=== PATIENT | female | born 1945 | race Caucasian/White ===

== ENCOUNTER → 2020-04-05 | Outpatient (CLI) | payer MEDICARE ==
--- NOTE | 2020-04-07 01:05 | MR ---
Result: History: Left foot mass. Comparison: None available. Technique: Multiplanar, multisequence MR imaging of the left foot was performed without contrast. Findings: There is a skin marker at the dorsal and medial aspect of the midfoot. There is a prominent dorsal osteophyte with skin thickening at the area of clinical concern. There ar e scattered mild to moderate degenerative changes most notable at the mid foot. Otherwise no significant bone marrow abnormality, acute fracture or dislocation. No significant joint effusion. There is mild to moderate soft tissue edema predominantly subcutaneous and superficial fascia of the forefoot. No significant fluid collection or abnormal mass. There is no significant abnormality of the visualized tendons. The plantar fascia is grossly intact. No significant muscle atrophy. Impression: Area of clinical concern corresponding to prominent dorsal osteophyte with skin thickening. No signif icant fluid collection or mass seen. Recommend clinical follow-up to resolution or stability. Mild to moderate soft tissue edema most notable at the forefoot. Correlate for bland edema versus aron lulitis. No acute osseous abnormality or osteomyelitis.
== END | disposition home or self-care (01) ==
LOC: RADMRIMAIN 16:29
PROVIDERS: ATTEND Podiatrist Foot & Ankle Surgery
DX: M79.89 Other specified soft tissue disorders (principal)

== ENCOUNTER 2021-03-27 05:06 | Inpatient (IN) | payer MEDICARE ==
[2021-03-27] MEDS ORDERED: DEXAMETHASONE SOD PHOSPHATE 10 MG/ML 1 ML VIAL IVP STA (05:12)
[2021-03-27] MEDS ORDERED: SODIUM CHLORIDE 0.9% 1,000 ML IV STA (05:12)
[2021-03-27] MEDS ORDERED: ALBUTEROL HFA INHALER INHALATION STA (05:12)
[2021-03-27] MEDS ORDERED: KETOROLAC 15 MG/ML 1 ML VIAL IVP STA (05:12)
[2021-03-27] MEDS ORDERED: ACETAMINOPHEN TAB 500 MG TAB PO STA (05:12)
--- NOTE | 2021-03-27 05:13 | ED ---
Recheck HPI - General Stated Complaint: SUSAN, covid+ Time Seen by Provider: 03/27/21 05:12 - Related Data Home Medications Medication Instructions Recorded Confirmed Ergocalciferol [Vitamin D2 50,000 unit PO Q7D 01/07/14 12/01/15 (DRISDOL)] Metoprolol Tartrate [Lopressor] 100 mg PO BID 01/07/14 12/01/15 Simvastatin [Zocor] 20 mg PO HS 01/07/14 12/01/15 Meclizine [Antivert] 12.5 mg PO DAILY 12/01/15 12/01/15 Omeprazole 20 mg PO DAILY 12/01/15 12/01/15 Zolpidem Tartrate [Ambien] 5 mg PO HS 12/01/15 12/01/15 amLODIPine [Norvasc] 5 mg PO DAILY 12/01/15 12/01/15 Previous Rx's Medication Instructions Recorded Acetaminophen with Codeine 1 tab PO Q4H #20 tab 12/01/15 [Tylenol w/codeine #3] Naproxen [Naprosyn] 500 mg PO Q12HR #60 tab 12/01/15 Allergies Allergy/AdvReac Type Severity Reaction Status Date / Time Iodinated Contrast Media Allergy Unknown Verified 03/27/21 05:20 [Iodinated Contrast Media - IV Dye] Review of Systems ROS Statement: Those systems with pertinent positive or pertinent negative responses have been documented in the HPI. ROS Other: All systems not noted in ROS Statement are negative. Past Medical History Past Medical History: Hyperlipidemia, Hypertension Additional Past Medical History / Comment(s): palpitations History of Any Multi-Drug Resistant Organisms: None Reported Past Surgical History: Appendectomy Additional Past Surgical History / Comment(s): throat surg Past Anesthesia/Blood Transfusion Reactions: No Reported Reaction Past Psychological History: No Psychological Hx Reported Past Alcohol Use History: None Reported Past Drug Use History: None Reported Course Vital Signs 03/27/21 05:08 Temperature 98 F Pulse Rate 95 Respiratory 18 Rate Blood Pressure 117/55 O2 Sat by Pulse 95 Oximetry Medical Decision Making - Lab Data Result diagrams: 03/27/21 05:23 03/27/21 05:23 Lab Results 03/27/21 03/27/21 Range/Units 05:23 05:23 WBC 6.7 (3.8-10.6) k/uL RBC 4.37 (3.80-5.40) m/uL Hgb 14.2 (11.4-16.0) gm/dL Hct 42.6 (34.0-46.0) % MCV 97.6 (80.0-100.0) fL MCH 32.6 (25.0-35.0) pg MCHC 33.4 (31.0-37.0) g/dL RDW 12.6 (11.5-15.5) % Plt Count 186 (150-450) k/uL MPV 7.8 Neutrophils % 71 % Lymphocytes % 22 % Monocytes % 6 % Eosinophils % 0 % Basophils % 0 % Neutrophils # 4.8 (1.3-7.7) k/uL Lymphocytes # 1.5 (1.0-4.8) k/uL Monocytes # 0.4 (0-1.0) k/uL Eosinophils # 0.0 (0-0.7) k/uL Basophils # 0.0 (0-0.2) k/uL Sodium 130 L (137-145) mmol/L Potassium 3.8 (3.5-5.1) mmol/L Chloride 101 (98-107) mmol/L Carbon Dioxide 20 L (22-30) mmol/L Anion Gap 9 mmol/L BUN 20 H (7-17) mg/dL Creatinine 0.81 (0.52-1.04) mg/dL Est GFR (CKD-EPI)AfAm 83 (>60 ml/min/1.73 sqM) Est GFR (CKD-EPI)NonAf 72 (>60 ml/min/1.73 sqM) Glucose 97 (74-99) mg/dL Calcium 8.5 (8.4-10.2) mg/dL Magnesium 1.5 L (1.6-2.3) mg/dL Total Bilirubin 0.3 (0.2-1.3) mg/dL AST 49 H (14-36) U/L ALT 30 (4-34) U/L Alkaline Phosphatase 70 (38-126) U/L Lactate Dehydrogenase 482 (313-618) U/L C-Reactive Protein 2.0 H (<1.0) mg/dL Total Protein 6.9 (6.3-8.2) g/dL Albumin 3.5 (3.5-5.0) g/dL Disposition Clinical Impression: Chest pain, Hypoxia, Coronavirus infection, COVID-19 Disposition: ADMITTED IP TO THIS HOSP Condition: Fair Is patient prescribed a controlled substance at d/c from ED?: No Referrals: Sarah Griggs MD [Primary Care Provider] - 1-2 days
[2021-03-27] MEDS ORDERED: MORPHINE SULFATE 2 MG/ML SYRINGE IVP STA (05:32)
[2021-03-27 05:44] LABS: Basophils % (A) 0 %; Eosinophils % (A) 0 %; HCT 42.6 % (34.0-46.0); HGB 14.2 gm/dL (11.4-16.0); Lymphocytes # (A) 1.5 k/uL (1.0-4.8); Lymphocytes % (A) 22 %; MCH 32.6 pg (25.0-35.0); MCHC 33.4 g/dL (31.0-37.0); MCV 97.6 fL (80.0-100.0); Mean Platelet Volume 7.8; Monocytes # (A) 0.4 k/uL (0-1.0); Monocytes % (A) 6 %; Neutrophils # (A) 4.8 k/uL (1.3-7.7); Neutrophils % (A) 71 %; Platelet Count 186 k/uL (150-450); RBC 4.37 m/uL (3.80-5.40); RDW 12.6 % (11.5-15.5); WBC 6.7 k/uL (3.8-10.6)
--- NOTE | 2021-03-27 05:54 | XR ---
EXAMINATION TYPE: XR chest 1V portable DATE OF EXAM: 03/27/2021 COMPARISON: 01/07/2014 HISTORY: Cough and congestion TECHNIQUE: Single view FINDINGS: Heart is normal. Lungs are clear of infiltrate. There is no heart failure. There are no hil ar masses. IMPRESSION: No active cardiopulmonary disease. No adverse change.
[2021-03-27 06:01] LABS: Albumin 3.5 g/dL (3.5-5.0); Calcium 8.5 mg/dL (8.4-10.2); Magnesium 1.5 mg/dL (1.6-2.3); Total Bilirubin 0.3 mg/dL (0.2-1.3); Total Protein 6.9 g/dL (6.3-8.2)
[2021-03-27 06:09] LABS: Potassium 3.8 mmol/L (3.5-5.1)
[2021-03-27] MEDS ORDERED: MORPHINE SULFATE 4 MG/ML SYRINGE IV PRN (06:28)
[2021-03-27] MEDS ORDERED: NALOXONE 0.4 MG/ML 1 ML VIAL IV PRN (06:28)
[2021-03-27] MEDS ORDERED: BAMLANIVIMAB (EUA) 700 MG, ETESEVIMAB (EUA) 1,400 MG in SODIUM CHLORIDE 0.9% 50 ML IVPB ONE (06:30)
[2021-03-27] MEDS ORDERED: SODIUM CHLORIDE 0.9% 50 ML IVPB ONE (06:30)
[2021-03-27 06:33] LABS: INR 0.9 (<1.2); Partial Thromboplastin Time 29.9 sec (22.0-30.0); Prothrombin Time 10.2 sec (9.0-12.0)
[2021-03-27] MEDS: SODIUM CHLORIDE 0.9% 1,000 ML IV SCH ×3 (07:40→20:57)
[2021-03-27] MEDS: ISOSORBIDE MONONITRATE ER 30 MG TAB.ER.24H PO SCH (08:49)
[2021-03-27] MEDS: METOPROLOL TARTRATE 50 MG TAB PO SCH ×2 (08:49→20:40)
[2021-03-27] MEDS: MULTIVITAMINS, THERA 1 EACH TAB PO SCH (08:50)
[2021-03-27] MEDS: ALBUTEROL HFA INHALER INHALATION PRN ×3 (08:52→20:53)
[2021-03-27] MEDS: cycloSPORINE 0.05% OPHTH 0.4 ML DROPERETTE BOTH EYES SCH ×2 (08:58→20:57)
--- NOTE | 2021-03-27 10:46 | P.HPIM ---
History of Present Illness H&P Date: 03/27/21 This is a 76-year-old female with past medical history noted below Presented to the emergency room with worsening weakness, shortness of breath, and cough. Patient said that her symptoms started approximately a week ago and is being getting progressively worse. She denies any fevers or chills. She went to a local urgent care yesterday and was diagnosed with COVID-19. She came in to the ER today to receive mAb that was found to be hypoxic with O2 sats of 87% on room air. She was given IV Decadron and will be placed on observation for further management. Patient informed me that she is not vaccinated. She denies any contact with known COVID patient. She otherwise denies any diarrhea, nausea, or vomiting. Review of Systems Review of system: 14 points review of systems were obtained and were negative except to what were mentioned in the HPI. Past Medical History Past Medical History: Hyperlipidemia, Hypertension Additional Past Medical History / Comment(s): palpitations History of Any Multi-Drug Resistant Organisms: None Reported Past Surgical History: Appendectomy Additional Past Surgical History / Comment(s): throat surg Past Anesthesia/Blood Transfusion Reactions: No Reported Reaction Past Psychological History: No Psychological Hx Reported Past Alcohol Use History: None Reported Past Drug Use History: None Reported Medications and Allergies Home Medications Medication Instructions Recorded Confirmed Type Metoprolol Tartrate [Lopressor] 100 mg PO BID 01/07/14 03/27/21 History amLODIPine [Norvasc] 5 mg PO DAILY 12/01/15 03/27/21 History Albuterol Inhaler [Ventolin Hfa 2 puff INHALATION RT-QID PRN 03/27/21 03/27/21 History Inhaler] Atorvastatin [Lipitor] 40 mg PO HS 03/27/21 03/27/21 History Isosorbide Mononitrate ER [Imdur] 30 mg PO DAILY 03/27/21 03/27/21 History Isosorbide Mononitrate ER [Imdur] 60 mg PO DAILY 03/27/21 03/27/21 History Multivitamins, Thera [Multivitamin 1 tab PO DAILY 03/27/21 03/27/21 History (formulary)] cycloSPORINE [Restasis] 1 drop BOTH EYES BID 03/27/21 03/27/21 History Allergies Allergy/AdvReac Type Severity Reaction Status Date / Time Iodinated Contrast Media Allergy Unknown Verified 03/27/21 07:09 [Iodinated Contrast Media - IV Dye] Physical Exam Vitals: Vital Signs Temp Pulse Resp BP Pulse Ox 03/27/21 09:00 117/54 03/27/21 08:52 96 03/27/21 08:51 90 16 117/54 94 L 03/27/21 08:24 95 03/27/21 08:23 88 L 03/27/21 07:33 98.6 F 93 16 105/58 94 L 03/27/21 05:08 98 F 95 18 117/55 95 Intake and Output 03/26/21 03/27/21 03/27/21 22:59 06:59 14:59 Other: Weight 80.739 kg General: The patient is awake and alert, in no distress Eye: there is normal conjunctiva bilaterally. Neck: The neck is supple, there is no JVD. Cardiovascular: Normal S1-S2, no S3-S4, no murmurs. Respiratory: Lungs clear to auscultation bilaterally Gastrointestinal: Abdomen is soft, nontender Musculoskeletal: There is no pedal edema. Neurological:. Speech is normal. Skin: Skin is warm and dry Results CBC & Chem 7: 03/27/21 05:23 03/27/21 05:23 Labs: Abnormal Lab Results - Last 24 Hours (Table) 03/27/21 Range/Units 05:23 Sodium 130 L (137-145) mmol/L Carbon Dioxide 20 L (22-30) mmol/L BUN 20 H (7-17) mg/dL Magnesium 1.5 L (1.6-2.3) mg/dL AST 49 H (14-36) U/L C-Reactive Protein 2.0 H (<1.0) mg/dL Assessment and Plan Assessment: 1. Acute hypoxic respiratory failure secondary to COVID-19 in non-vaccinated patient: Chest x-ray unremarkable. D-dimer normal. Continue Decadron 6 mg daily. Vitamin C, vitamin D, and zinc supplements. Pulmonary consulted for further evaluation. 2. Hypomagnesemia, replaced, repeat lab work in the morning 3. Hyponatremia, we will continue gentle IV fluid hydration with normal saline 4. Essential hypertension, blood pressure borderline low. Hold home dose of amlodipine and continue other medications 5. DVT prophylaxis with subcu Lovenox 6. CODE STATUS, patient is full code. Discussed with her today
[2021-03-27] MEDS: ZINC SULFATE 220 MG CAP PO SCH (11:38)
[2021-03-27] MEDS: ENOXAPARIN 40 MG/0.4 ML SYRINGE SQ SCH (11:39)
[2021-03-27] MEDS: ASCORBIC ACID 500 MG TAB PO SCH (11:39)
[2021-03-27] MEDS: CHOLECALCIFEROL 25 MCG (1000 IU) TABLET PO SCH (11:39)
--- NOTE | 2021-03-27 12:20 | P.CNPUL ---
History of Present Illness Consult date: 03/27/21 Reason for consult: dyspnea, pneumonia History of present illness: 76-year-old female patient, presented with generalized weakness shortness of b reath and cough. The patient was diagnosed having COVID 19 pneumonia. The patient was hypoxic at time of admission with a pulse ox of 87% on room air oxygen and currently she is on 3 L. She was in the emergency department today to receive multiple antibodies and the patient was found to be hypoxic and ultimately she was started on Decadron and she'll be admitted to the hospital. Her symptoms started approximately a week ago and it has been progressively getting worse. As mentioned earlier, this isn't unlike sedated individual. The chest x-ray showing improvement in bilateral pulmonary infiltrates mainly in the lung bases worse on the left. The blood work is showing a CRP level of 2 LDH of 482, normal coagulation profile, normal CBC. Currently on 3 L with a pulse ox of 96%. Comorbid conditions include hypertension hyperlipidemia Review of Systems Constitutional: Reports fatigue, Reports fever Eyes: denies as per HPI, denies blurred vision, denies bulging eye, denies decreased vision, denies diplopia, denies discharge, denies dry eye, denies irritation, denies itching, denies pain, denies photophobia, denies loss of peripheral vision, denies loss of vision, denies tunnel vision/blind spots Ears: deny: decreased hearing, ear discharge, earache, tinnitus Ears, nose, mouth and throat: Reports as per HPI Breasts: absent: as per HPI, change in shape, gynecomastia, masses, nipple discharge, pain, skin changes, swelling Cardiovascular: Reports decreased exercise tolerance, Reports dyspnea on exertion Respiratory: Reports cough, Reports dyspnea Gastrointestinal: Reports as per HPI Genitourinary: Reports as per HPI Menstruation: Reports as per HPI Musculoskeletal: Reports as per HPI Musculoskeletal: absent: ankle pain, ankle stiffness, ankle swelling, as per HPI, elbow pain, elbow stiffness, elbow swelling, foot pain, foot stiffness, foot swelling, hand pain, hand stiffness, hand swelling, hip pain, hip stiffness, hip swelling, knee pain, knee stiffness, knee swelling, shoulder pain, shoulder stiffness, shoulder swelling, wrist pain, wrist stiffness, wrist swelling Integumentary: Reports as per HPI Neurological: Reports as per HPI Endocrine: Reports as per HPI Hematologic/Lymphatic: Reports as per HPI Allergic/Immunologic: Reports as per HPI Past Medical History Past Medical History: Hyperlipidemia, Hypertension Additional Past Medical History / Comment(s): palpitations History of Any Multi-Drug Resistant Organisms: None Reported Past Surgical History: Appendectomy Additional Past Surgical History / Comment(s): throat surg Past Anesthesia/Blood Transfusion Reactions: No Reported Reaction Past Psychological History: No Psychological Hx Reported Past Alcohol Use History: None Reported Past Drug Use History: None Reported Medications and Allergies Home Medications Medication Instructions Recorded Confirmed Type Metoprolol Tartrate [Lopressor] 100 mg PO BID 01/07/14 03/27/21 History amLODIPine [Norvasc] 5 mg PO DAILY 12/01/15 03/27/21 History Albuterol Inhaler [Ventolin Hfa 2 puff INHALATION RT-QID PRN 03/27/21 03/27/21 History Inhaler] Atorvastatin [Lipitor] 40 mg PO HS 03/27/21 03/27/21 History Isosorbide Mononitrate ER [Imdur] 30 mg PO DAILY 03/27/21 03/27/21 History Isosorbide Mononitrate ER [Imdur] 60 mg PO DAILY 03/27/21 03/27/21 History Multivitamins, Thera [Multivitamin 1 tab PO DAILY 03/27/21 03/27/21 History (formulary)] cycloSPORINE [Restasis] 1 drop BOTH EYES BID 03/27/21 03/27/21 History Allergies Allergy/AdvReac Type Severity Reaction Status Date / Time Iodinated Contrast Media Allergy Unknown Verified 03/27/21 07:09 [Iodinated Contrast Media - IV Dye] Physical Exam Vitals: Vital Signs Temp Pulse Resp BP Pulse Ox 03/27/21 09:00 117/54 03/27/21 08:52 96 03/27/21 08:51 90 16 117/54 94 L 03/27/21 08:24 95 03/27/21 08:23 88 L 03/27/21 07:33 98.6 F 93 16 105/58 94 L 03/27/21 05:08 98 F 95 18 117/55 95 Intake and Output 03/26/21 03/27/21 03/27/21 22:59 06:59 14:59 Other: Weight 80.739 kg Gen. appearance the patient is currently on 3 L about 2 by nasal cannula, breathing is nonlabored The patient appeared well nourished and normally developed. Vital signs as documented. Head exam is unremarkable. No scleral icterus or corneal arcus noted. Neck is without jugular venous distension, thyromegaly, or carotid bruits. Carotid upstrokes are brisk bilaterally. Lungs are revealed few crackles at lung bases bilaterally. Cardiac exam reveals the PMI to be normally sized and situated. Rhythm is regular. First and second heart sounds normal. No murmurs, rubs or gallops. Abdominal exam reveals normal bowel sounds, no masses, no organomegaly and no aortic enlargement. Extremities are nonedematous and both femoral and pedal pulses are normal. Examination of the skin revealed no evidence of significant rashes, suspicious appearing nevi or other concerning lesions. Neurologically, the patient is awake and alert and the patient does not have any focal neurological deficit. Cranial nerves are essentially intact. Results - Laboratory Findings CBC and BMP: 03/27/21 05:23 03/27/21 05:23 PT/INR, D-dimer PT 10.2 sec (9.0-12.0) 03/27/21 05:23 INR 0.9 (<1.2) 03/27/21 05:23 Abnormal lab findings: Abnormal Labs 03/27/21 03/27/21 05:23 10:00 Sodium 130 L Carbon Dioxide 20 L BUN 20 H Magnesium 1.5 L AST 49 H C-Reactive Protein 2.0 H Coronavirus (PCR) Detected A - Diagnostic Findings Chest x-ray: image reviewed Assessment and Plan Plan: 1 acute Covid associated pneumonia with secondary shortness of breath, cough and hypoxemia 2 acute hypoxemic respiratory failure and the patient is currently on today's of action by nasal cannula 3 mild elevation of inflammatory markers 4 hypertension 5 hyperlipidemia Plan Titrate FiO2 to maintain a saturation above 90% currently on 3 L Continue Decadron and initiated the [place] out of the city per protocol Provide the multivitamin regimen for Covid 19 infections Check d-dimer levels Check pro calcitonin levels IV fluid hydration Monitor telemetry markers We'll continue to follow
[2021-03-27] MEDS ORDERED: REMDESIVIR 200 MG in SODIUM CHLORIDE 0.9% 250 ML IVPB ONE (14:00)
[2021-03-27] MEDS: MORPHINE SULFATE 2 MG/ML SYRINGE IVP PRN (17:45)
[2021-03-27] MEDS: ATORVASTATIN 40 MG TAB PO SCH (20:40)
[2021-03-27] MEDS: ACETAMINOPHEN TAB 325 MG TAB PO PRN (21:51)
[2021-03-28] MEDS: MORPHINE SULFATE 2 MG/ML SYRINGE IVP PRN (04:24)
[2021-03-28] MEDS: SODIUM CHLORIDE 0.9% 1,000 ML IV SCH (05:25)
--- NOTE | 2021-03-28 07:59 | XR ---
EXAMINATION TYPE: XR chest 1V portable DATE OF EXAM: 03/28/2021 CLINICAL HISTORY: Difficulty breathing progress study. COVID. TECHNIQUE: Single AP portable frontal view of the chest is obtained. COMPARISON: Chest x-ray from one day earlier FINDINGS: There are chronic parenchymal changes bilaterally with some new faint increased opacity ri ght midlung periphery. Persistent cardiomegaly with atherosclerotic thoracic aorta. Bilateral hilar p rominence consistent with underlying pulmonary artery hypertension. Osseous structures are deminerali zed. Old posterolateral right fourth and fifth rib fractures redemonstrated. Degenerative change bila teral glenohumeral joints redemonstrated. Overlying EKG leads currently. IMPRESSION: Cardiomegaly and chronic parenchymal changes redemonstrated. Possible mild underlying int erstitial edema. Possible developing acute infiltrate peripheral right mid lung.
[2021-03-28] MEDS: ASCORBIC ACID 500 MG TAB PO SCH (08:16)
[2021-03-28] MEDS: ENOXAPARIN 40 MG/0.4 ML SYRINGE SQ SCH (08:16)
[2021-03-28] MEDS: CHOLECALCIFEROL 25 MCG (1000 IU) TABLET PO SCH (08:16)
[2021-03-28] MEDS: MULTIVITAMINS, THERA 1 EACH TAB PO SCH (08:16)
[2021-03-28] MEDS: METOPROLOL TARTRATE 50 MG TAB PO SCH ×2 (08:16→19:45)
[2021-03-28] MEDS: ISOSORBIDE MONONITRATE ER 30 MG TAB.ER.24H PO SCH (08:16)
[2021-03-28] MEDS: cycloSPORINE 0.05% OPHTH 0.4 ML DROPERETTE BOTH EYES SCH ×2 (08:17→19:46)
[2021-03-28] MEDS: dexAMETHasone 2 MG TAB PO SCH (10:22)
[2021-03-28] MEDS: ONDANSETRON 4 MG/2 ML VIAL IVP PRN (10:22)
[2021-03-28] MEDS: ZINC SULFATE 220 MG CAP PO SCH (10:23)
[2021-03-28] MEDS: ALBUTEROL HFA INHALER INHALATION PRN ×3 (11:14→20:14)
[2021-03-28 11:51] LABS: Basophils # (A) 0 X 10*3/uL (0.00-0.10); Basophils % (A) 0 %; Eosinophils # (A) 0 X 10*3/uL (0.04-0.35); Eosinophils % (A) 0 %; HCT 37.8 % (37.2-46.3); HGB 12.1 g/dL (12.0-15.0); Lymphocytes # (A) 1.51 X 10*3/uL (0.90-5.00); Lymphocytes % (A) 33.2 %; MCH 31.3 pg (27.0-32.0); MCV 97.9 fL (80.0-97.0); Mean Platelet Volume 10.5 fL (9.5-12.2); Monocytes # (A) 0.46 X 10*3/uL (0.20-1.00); Monocytes % (A) 10.1 %; Neutrophils # (A) 2.56 X 10*3/uL (1.80-7.70); Neutrophils % (A) 56.3 %; Platelet Count 163 X 10*3/uL (140-440); RBC 3.86 X 10*6/uL (4.10-5.20); RDW 13.5 % (11.5-14.5); WBC 4.55 X 10*3/uL (4.50-10.00)
[2021-03-28 13:28] LABS: ALT 23 U/L (8-44); AST 29 U/L (13-35); African American GFR (CKD) 92.9 (60.0-200.0); Albumin 3.1 g/dL (3.8-4.9); Alkaline Phosphatase 64 U/L (41-126); BUN/Creat Ratio 20.46 Ratio (12.00-20.00); Calcium 7.9 mg/dL (8.7-10.3); Carbon Dioxide 18.3 mmol/L (21.6-31.8); Chloride 110 mmol/L (96-109); Globulin 2.6 g/dL (1.6-3.3); Glucose 119 mg/dL (70-110); LDH 149 U/L (120-246); Non-African American GFR(CKD) 80.2 (60.0-200.0); Potassium 3.9 mmol/L (3.5-5.5); Sodium 138 mmol/L (135-145); Total Bilirubin <0.20 mg/dL (0.30-1.20); Total Protein 5.6 g/dL (6.2-8.2)
--- NOTE | 2021-03-28 14:07 | P.PN ---
Subjective Patient is doing fairly well today. Shortness of breath is improving. No acute events overnight reported by nursing staff. Objective - Vital Signs Vital signs: Vital Signs Temp 97.7 F 03/28/21 07:00 Pulse 58 L 03/28/21 07:00 Resp 18 03/28/21 07:00 BP 122/70 03/28/21 07:00 Pulse Ox 97 03/28/21 07:00 Intake & Output 03/27/21 03/28/21 03/28/21 18:59 06:59 18:59 Output Total 1 Balance -1 Weight 80.739 kg Output: Stool 1 Other: # Voids 1 - Exam General: The patient is awake and alert, in no distress Eye: there is normal conjunctiva bilaterally. Neck: The neck is supple, there is no JVD. Cardiovascular: Normal S1-S2, no S3-S4, no murmurs. Respiratory: Lungs clear to auscultation bilaterally Gastrointestinal: Abdomen is soft, nontender Musculoskeletal: There is no pedal edema. Neurological:. Speech is normal. Skin: Skin is warm and dry - Labs CBC & Chem 7: 03/28/21 06:51 03/28/21 06:51 Labs: Abnormal Lab Results - Last 24 Hours (Table) 03/27/21 03/28/21 03/28/21 Range/Units 13:07 06:51 06:51 RBC 3.86 L (4.10-5.20) X 10*6/uL MCV 97.9 H (80.0-97.0) fL Eosinophils # 0 L (0.04-0.35) X 10*3/uL Chloride 110 H (96-109) mmol/L Carbon Dioxide 18.3 L (21.6-31.8) mmol/L BUN/Creatinine Ratio 20.46 H (12.00-20.00) Ratio Glucose 119 H (70-110) mg/dL Calcium 7.9 L (8.7-10.3) mg/dL Total Bilirubin <0.20 L (0.30-1.20) mg/dL Total Protein 5.6 L (6.2-8.2) g/dL Albumin 3.1 L (3.8-4.9) g/dL Albumin/Globulin Ratio 1.20 L (1.60-3.17) g/dL Procalcitonin 0.22 H (0.02-0.09) ng/mL Assessment and Plan Assessment: 1. Acute hypoxic respiratory failure secondary to COVID-19 in non-vaccinated patient: Chest x-ray unremarkable. D-dimer normal. Continue Decadron 6 mg daily. Vitamin C, vitamin D, and zinc supplements. Pulmonary consulted for further evaluation. Patient was started on Remdesivir 2. Hypomagnesemia, replaced 3. Hyponatremia, we will continue gentle IV fluid hydration with normal saline 4. Essential hypertension, blood pressure borderline low. Hold home dose of amlodipine and continue other medications 5. DVT prophylaxis with subcu Lovenox 6. CODE STATUS, patient is full code. Discussed with her on admission
[2021-03-28] MEDS: REMDESIVIR 100 MG in SODIUM CHLORIDE 0.9% 250 ML IVPB SCH (14:09)
--- NOTE | 2021-03-28 14:48 | P.PN ---
Subjective Progress Note Date: 03/28/21 76-year-old female patient, presented with generalized weakness shortness of breath and cough. The patient was diagnosed having COVID 19 pneumonia. The patient was hypoxic at time of admission with a pulse ox of 87% on room air oxygen and currently she is on 3 L. She was in the emergency department today to receive multiple antibodies and the patient was found to be hypoxic and ultimately she was started on Decadron and she'll be admitted to the hospital. Her symptoms started approximately a week ago and it has been progressively getting worse. As mentioned earlier, this is on not vaccinated individual. The chest x-ray showing improvement in bilateral pulmonary infiltrates mainly in the lung bases worse on the left. The blood work is showing a CRP level of 2 LDH of 482, normal coagulation profile, normal CBC. Currently on 3 L with a pulse ox of 96%. Comorbid conditions include hypertension hyperlipidemia 03/28/2021, the patient is coughing and she also lost her sense of smell. She is tolerating her diet. Her cough is dry. There is no significant sputum production. She remains on 3 L of oxygen by nasal cannula. She remains on a combination of Decadron and she is also on her dyspnea per protocol. No altered mentation. No nausea or vomiting. No emesis. No diarrhea. She is still feeling weak and quite ill. Nevertheless, there is no worsening in her oxygenation. Pulse ox is 97% of the structures of oxygen by nasal cannula.The LDH level is lower. The level is is lower compared to yesterday. Pro- calcitonin level is 0.22. The patient remains on Decadron 6 mg by mouth daily. Objective - Vital Signs Vital signs: Vital Signs Temp 97.7 F 03/28/21 07:00 Pulse 58 L 03/28/21 07:00 Resp 18 03/28/21 07:00 BP 122/70 03/28/21 07:00 Pulse Ox 97 03/28/21 07:00 Intake & Output 03/27/21 03/28/21 03/28/21 18:59 06:59 18:59 Output Total 1 Balance -1 Weight 80.739 kg Output: Stool 1 Other: # Voids 1 - Exam Gen. appearance the patient is currently on 3 L about 2 by nasal cannula, breathing is nonlabored The patient appeared well nourished and normally developed. Vital signs as documented. Head exam is unremarkable. No scleral icterus or corneal arcus noted. Neck is without jugular venous distension, thyromegaly, or carotid bruits. Carotid upstrokes are brisk bilaterally. Lungs are revealed few crackles at lung bases bilaterally. Cardiac exam reveals the PMI to be normally sized and situated. Rhythm is regular. First and second heart sounds normal. No murmurs, rubs or gallops. Abdominal exam reveals normal bowel sounds, no masses, no organomegaly and no aortic enlargement. Extremities are nonedematous and both femoral and pedal pulses are normal. Examination of the skin revealed no evidence of significant rashes, suspicious appearing nevi or other concerning lesions. Neurologically, the patient is awake and alert and the patient does not have any focal neurological deficit. Cranial nerves are essentially intact. - Labs CBC & Chem 7: 03/28/21 06:51 03/28/21 06:51 Labs: Abnormal Lab Results - Last 24 Hours (Table) 03/27/21 03/28/21 03/28/21 Range/Units 13:07 06:51 06:51 RBC 3.86 L (4.10-5.20) X 10*6/uL MCV 97.9 H (80.0-97.0) fL Eosinophils # 0 L (0.04-0.35) X 10*3/uL Chloride 110 H (96-109) mmol/L Carbon Dioxide 18.3 L (21.6-31.8) mmol/L BUN/Creatinine Ratio 20.46 H (12.00-20.00) Ratio Glucose 119 H (70-110) mg/dL Calcium 7.9 L (8.7-10.3) mg/dL Total Bilirubin <0.20 L (0.30-1.20) mg/dL Total Protein 5.6 L (6.2-8.2) g/dL Albumin 3.1 L (3.8-4.9) g/dL Albumin/Globulin Ratio 1.20 L (1.60-3.17) g/dL Procalcitonin 0.22 H (0.02-0.09) ng/mL Assessment and Plan Plan: 1 acute Covid associated pneumonia with secondary shortness of breath, cough and hypoxemia 2 acute hypoxemic respiratory failure and the patient is currently on today's of action by nasal cannula 3 mild elevation of inflammatory markers 4 hypertension 5 hyperlipidemia Plan The patient is stable in terms of her oxygenation still on 3 L. Continue the same and attempt to wean and will add Robitussin-DM for cough and congestion. Meanwhile, she is going to continue the same regimen of Decadron and from the sedation protocol. Inflammatory markers are improving. IV fluid hydration Monitor telemetry markers We'll continue to follow
[2021-03-28] MEDS: guaiFENesin-DM 100-10MG/5ML 10 ML CUP PO PRN ×2 (15:03→23:29)
[2021-03-28] MEDS: ATORVASTATIN 40 MG TAB PO SCH (19:45)
[2021-03-28] MEDS: MAGNESIUM SULFATE-D5W PMX 1 GM in DEXTROSE/WATER 1 100ML.BAG IVPB SCH ×2 (19:46→22:12)
[2021-03-28] MEDS: ACETAMINOPHEN TAB 325 MG TAB PO PRN (22:12)
[2021-03-29] MEDS: MULTIVITAMINS, THERA 1 EACH TAB PO SCH (08:32)
[2021-03-29] MEDS: cycloSPORINE 0.05% OPHTH 0.4 ML DROPERETTE BOTH EYES SCH ×2 (08:32→20:37)
[2021-03-29] MEDS: CHOLECALCIFEROL 25 MCG (1000 IU) TABLET PO SCH (08:32)
[2021-03-29] MEDS: ISOSORBIDE MONONITRATE ER 30 MG TAB.ER.24H PO SCH (08:32)
[2021-03-29] MEDS: ASCORBIC ACID 500 MG TAB PO SCH (08:32)
[2021-03-29] MEDS: ZINC SULFATE 220 MG CAP PO SCH (08:32)
[2021-03-29] MEDS: METOPROLOL TARTRATE 50 MG TAB PO SCH ×2 (08:32→20:37)
[2021-03-29] MEDS: ENOXAPARIN 40 MG/0.4 ML SYRINGE SQ SCH (08:32)
[2021-03-29] MEDS: dexAMETHasone 2 MG TAB PO SCH (09:21)
[2021-03-29] MEDS: ONDANSETRON 4 MG/2 ML VIAL IVP PRN (10:37)
[2021-03-29] MEDS: ALBUTEROL HFA INHALER INHALATION PRN ×3 (12:06→19:20)
[2021-03-29] MEDS: REMDESIVIR 100 MG in SODIUM CHLORIDE 0.9% 250 ML IVPB SCH (13:51)
--- NOTE | 2021-03-29 13:54 | P.PN ---
Subjective Progress Note Date: 03/29/21 Principal diagnosis: COVID-19 pneumonia 76-year-old female patient, presented with generalized weakness shortness of breath and cough. The patient was diagnosed having COVID 19 pneumonia. The patient was hypoxic at time of admission with a pulse ox of 87% on room air oxygen and currently she is on 3 L. She was in the emergency department today to receive multiple antibodies and the patient was found to be hypoxic and ultimately she was started on Decadron and she'll be admitted to the hospital. Her symptoms started approximately a week ago and it has been progressively getting worse. As mentioned earlier, this is on not vaccinated individual. The chest x-ray showing improvement in bilateral pulmonary infiltrates mainly in the lung bases worse on the left. The blood work is showing a CRP level of 2 LDH of 482, normal coagulation profile, normal CBC. Currently on 3 L with a pulse ox of 96%. Comorbid conditions include hypertension hyperlipidemia 03/28/2021, the patient is coughing and she also lost her sense of smell. She is tolerating her diet. Her cough is dry. There is no significant sputum production. She remains on 3 L of oxygen by nasal cannula. She remains on a combination of Decadron and she is also on her dyspnea per protocol. No altered mentation. No nausea or vomiting. No emesis. No diarrhea. She is still feeling weak and quite ill. Nevertheless, there is no worsening in her oxygenation. Pulse ox is 97% of the structures of oxygen by nasal cannula.The LDH level is lower. The level is is lower compared to yesterday. Pro- calcitonin level is 0.22. The patient remains on Decadron 6 mg by mouth daily. The patient is seen today 03/29/2021 in follow-up on the regular medical floor. She is currently sitting up in bed. Awake and alert in no acute distress. She still has a dry nonproductive cough. Maintaining good O2 saturation in the mid 90s on room air. She's been afebrile. Hemodynamically stable. No new labs t sherlyn. This is day #3 of Remdesivir. She is continued on Decadron, Lovenox, vitamin supplements. Objective - Vital Signs Vital signs: Vital Signs Temp 98.0 F 03/29/21 07:00 Pulse 58 L 03/29/21 07:00 Resp 16 03/29/21 07:00 BP 144/71 03/29/21 07:00 Pulse Ox 93 L 03/29/21 11:53 Intake & Output 03/28/21 03/29/21 03/29/21 18:59 06:59 18:59 Output Total 1 0 Balance -1 0 Output: Stool 1 Emesis 0 Other: Voiding Method Toilet - Exam Gen. appearance: This is a very pleasant 76-year-old female patient, currently on room air, no acute distress. The patient appeared well nourished and normally developed. Vital signs as documented. Head exam is unremarkable. No scleral icterus or corneal arcus noted. Neck is without jugular venous distension, thyromegaly, or carotid bruits. Carotid upstrokes are brisk bilaterally. Lungs are revealed few crackles at lung bases bilaterally. Cardiac exam reveals the PMI to be normally sized and situated. Rhythm is regular. First and second heart sounds normal. No murmurs, rubs or gallops. Abdominal exam reveals normal bowel sounds, no masses, no organomegaly and no aortic enlargement. Extremities are nonedematous and both femoral and pedal pulses are normal. Examination of the skin revealed no evidence of significant rashes, suspicious appearing nevi or other concerning lesions. Neurologically, the patient is awake and alert and the patient does not have any focal neurological deficit. Cranial nerves are essentially intact. - Labs CBC & Chem 7: 03/28/21 06:51 03/28/21 06:51 Labs: Abnormal Lab Results - Last 24 Hours (Table) 03/28/21 Range/Units 15:52 Magnesium 1.4 L (1.6-2.3) mg/dL Assessment and Plan Assessment: 1 acute Covid associated pneumonia with secondary shortness of breath, cough and hypoxemia. Initiated on Remdesivir. 2 acute hypoxemic respiratory failure and the patient is currently on room air 3 mild elevation of inflammatory markers 4 hypertension 5 hyperlipidemia Plan: The patient was seen and evaluated by Dr. Lewis Currently stable from the pulmonary standpoint On room air Day #3 of Remdesivir Continue Lovenox, Decadron, vitamin supplements Repeat chest x-ray and inflammatory markers in the a.m. We will continue to follow I, the cosigning physician, performed a history & physical examination of the patient. Lungs sounds with crackles in the posterior bases. Maintaining good O2 saturations in the 90s on room air. I discussed the assessment and plan of care with my nurse practitioner, Tressa Eastman. I attest to the above note as dictated by her.
--- NOTE | 2021-03-29 15:08 | P.PN ---
Subjective Patient is doing fairly well today. She continues to have a lot of cough. She is currently on room air with O2 sats around 90-93%. Objective - Vital Signs Vital signs: Vital Signs Temp 98.0 F 03/29/21 07:00 Pulse 58 L 03/29/21 07:00 Resp 16 03/29/21 07:00 BP 144/71 03/29/21 07:00 Pulse Ox 93 L 03/29/21 11:53 Intake & Output 03/28/21 03/29/21 03/29/21 18:59 06:59 18:59 Output Total 1 0 Balance -1 0 Output: Stool 1 Emesis 0 Other: Voiding Method Toilet # Voids 1 - Exam General: The patient is awake and alert, in no distress Eye: there is normal conjunctiva bilaterally. Neck: The neck is supple, there is no JVD. Cardiovascular: Normal S1-S2, no S3-S4, no murmurs. Respiratory: Lungs clear to auscultation bilaterally Gastrointestinal: Abdomen is soft, nontender Musculoskeletal: There is no pedal edema. Neurological:. Speech is normal. Skin: Skin is warm and dry - Labs CBC & Chem 7: 03/28/21 06:51 03/28/21 06:51 Labs: Abnormal Lab Results - Last 24 Hours (Table) 03/28/21 Range/Units 15:52 Magnesium 1.4 L (1.6-2.3) mg/dL Assessment and Plan Assessment: 1. Acute hypoxic respiratory failure secondary to COVID-19 in non-vaccinated patient: Chest x-ray unremarkable. D-dimer normal. Continue Decadron 6 mg daily. Vitamin C, vitamin D, and zinc supplements. Pulmonary consulted for further evaluation. Patient was started on Remdesivir day #2 2. Hypomagnesemia, replaced 3. Hyponatremia, we will continue gentle IV fluid hydration with normal saline 4. Essential hypertension, blood pressure borderline low. Hold home dose of amlodipine and continue other medications 5. DVT prophylaxis with subcu Lovenox 6. CODE STATUS, patient is full code. Discussed with her on admission
[2021-03-29] MEDS: guaiFENesin-DM 100-10MG/5ML 10 ML CUP PO PRN ×2 (15:49→22:17)
[2021-03-29] MEDS: ACETAMINOPHEN TAB 325 MG TAB PO PRN ×2 (15:49→22:17)
[2021-03-29] MEDS: ATORVASTATIN 40 MG TAB PO SCH (20:37)
[2021-03-30] MEDS: ZINC SULFATE 220 MG CAP PO SCH (07:27)
[2021-03-30] MEDS: CHOLECALCIFEROL 25 MCG (1000 IU) TABLET PO SCH (07:27)
[2021-03-30] MEDS: MULTIVITAMINS, THERA 1 EACH TAB PO SCH (07:27)
[2021-03-30] MEDS: ENOXAPARIN 40 MG/0.4 ML SYRINGE SQ SCH (07:27)
[2021-03-30] MEDS: METOPROLOL TARTRATE 50 MG TAB PO SCH ×2 (07:27→20:59)
[2021-03-30] MEDS: ASCORBIC ACID 500 MG TAB PO SCH (07:27)
[2021-03-30] MEDS: ISOSORBIDE MONONITRATE ER 30 MG TAB.ER.24H PO SCH (07:28)
[2021-03-30] MEDS: cycloSPORINE 0.05% OPHTH 0.4 ML DROPERETTE BOTH EYES SCH ×2 (07:28→20:59)
[2021-03-30] MEDS: dexAMETHasone 2 MG TAB PO SCH (07:28)
[2021-03-30 08:24] LABS: Basophils % (A) 0 %; Eosinophils % (A) 0 %; HCT 40.2 % (34.0-46.0); HGB 13.4 gm/dL (11.4-16.0); Lymphocytes # (A) 1.8 k/uL (1.0-4.8); Lymphocytes % (A) 36 %; MCH 32.8 pg (25.0-35.0); MCHC 33.4 g/dL (31.0-37.0); MCV 98.1 fL (80.0-100.0); Mean Platelet Volume 8.5; Monocytes # (A) 0.4 k/uL (0-1.0); Monocytes % (A) 7 %; Neutrophils # (A) 2.7 k/uL (1.3-7.7); Neutrophils % (A) 55 %; Platelet Count 183 k/uL (150-450)
[2021-03-30 08:32] LABS: African American GFR (CKD) >90 (>60 ml/min/1.73 sqM); Anion Gap 5 mmol/L; Blood Urea Nitrogen 18 mg/dL (7-17); Calcium 8.5 mg/dL (8.4-10.2); Carbon Dioxide 20 mmol/L (22-30); Chloride 108 mmol/L (98-107); Glucose 109 mg/dL (74-99); Non-African American GFR(CKD) >90 (>60 ml/min/1.73 sqM); Sodium 133 mmol/L (137-145)
[2021-03-30] MEDS: ALBUTEROL HFA INHALER INHALATION PRN ×3 (09:03→20:30)
[2021-03-30] MEDS: guaiFENesin-DM 100-10MG/5ML 10 ML CUP PO PRN (09:30)
[2021-03-30] MEDS: ACETAMINOPHEN TAB 325 MG TAB PO PRN ×2 (09:44→21:28)
--- NOTE | 2021-03-30 13:00 | P.PN ---
Subjective Patient is doing fairly well today. She is currently on room air. Denies any shortness of breath. Some intermittent cough. Objective - Vital Signs Vital signs: Vital Signs Temp 97.8 F 03/30/21 07:10 Pulse 54 L 03/30/21 07:10 Resp 19 03/30/21 08:00 BP 164/76 03/30/21 07:10 Pulse Ox 95 03/30/21 07:10 Intake & Output 03/29/21 03/30/21 03/30/21 18:59 06:59 18:59 Other: Voiding Method Toilet Toilet Toilet # Voids 1 2 - Exam General: The patient is awake and alert, in no distress Eye: there is normal conjunctiva bilaterally. Neck: The neck is supple, there is no JVD. Cardiovascular: Normal S1-S2, no S3-S4, no murmurs. Respiratory: Lungs clear to auscultation bilaterally Gastrointestinal: Abdomen is soft, nontender Musculoskeletal: There is no pedal edema. Neurological:. Speech is normal. Skin: Skin is warm and dry - Labs CBC & Chem 7: 03/30/21 06:32 03/30/21 06:32 Labs: Abnormal Lab Results - Last 24 Hours (Table) 03/30/21 Range/Units 06:32 Sodium 133 L (137-145) mmol/L Chloride 108 H (98-107) mmol/L Carbon Dioxide 20 L (22-30) mmol/L BUN 18 H (7-17) mg/dL Glucose 109 H (74-99) mg/dL Assessment and Plan Assessment: 1. Acute hypoxic respiratory failure secondary to COVID-19 in non-vaccinated patient: Chest x-ray unremarkable. D-dimer normal. Continue Decadron 6 mg daily. Vitamin C, vitamin D, and zinc supplements. Pulmonary consulted for further evaluation. Patient was started on Remdesivir day #4 2. Hypomagnesemia, replaced 3. Hyponatremia, we will continue gentle IV fluid hydration with normal saline 4. Essential hypertension, blood pressure borderline low. Hold home dose of amlodipine and continue other medications 5. DVT prophylaxis with subcu Lovenox 6. CODE STATUS, patient is full code. Discussed with her on admission Anticipated discharge home tomorrow
[2021-03-30] MEDS: REMDESIVIR 100 MG in SODIUM CHLORIDE 0.9% 250 ML IVPB SCH (13:44)
[2021-03-30] MEDS: ONDANSETRON 4 MG/2 ML VIAL IVP PRN (13:44)
--- NOTE | 2021-03-30 14:30 | P.PN ---
Subjective Progress Note Date: 03/30/21 76-year-old female patient, presented with generalized weakness shortness of breath and cough. The patient was diagnosed having COVID 19 pneumonia. The patient was hypoxic at time of admission with a pulse ox of 87% on room air oxygen and currently she is on 3 L. She was in the emergency department today to receive multiple antibodies and the patient was found to be hypoxic and ultimately she was started on Decadron and she'll be admitted to the hospital. Her symptoms started approximately a week ago and it has been progressively getting worse. As mentioned earlier, this is on not vaccinated individual. The chest x-ray showing improvement in bilateral pulmonary infiltrates mainly in the lung bases worse on the left. The blood work is showing a CRP level of 2 LDH of 482, normal coagulation profile, normal CBC. Currently on 3 L with a pulse ox of 96%. Comorbid conditions include hypertension hyperlipidemia 03/28/2021, the patient is coughing and she also lost her sense of smell. She is tolerating her diet. Her cough is dry. There is no significant sputum production. She remains on 3 L of oxygen by nasal cannula. She remains on a combination of Decadron and she is also on her dyspnea per protocol. No altered mentation. No nausea or vomiting. No emesis. No diarrhea. She is still feeling weak and quite ill. Nevertheless, there is no worsening in her oxygenation. Pulse ox is 97% of the structures of oxygen by nasal cannula.The LDH level is lower. The level is is lower compared to yesterday. Pro- calcitonin level is 0.22. The patient remains on Decadron 6 mg by mouth daily. The patient is seen today 03/29/2021 in follow-up on the regular medical floor. She is currently sitting up in bed. Awake and alert in no acute distress. She still has a dry nonproductive cough. Maintaining good O2 saturation in the mid 90s on room air. She's been afebrile. Hemodynamically stable. No new labs today. This is day #3 of Remdesivir. She is continued on Decadron, Lovenox, vitamin supplements. this is a follow-up evaluations was done on 03/30/2021 on this patient was being seen in follow-up regarding her COVID 19 infection/pneumonia. The patient presented with mild hypoxemia and currently she is on room air oxygen. She is still feeling lethargic and weak. However, her overall rest or status is stable and the patient is improved and the patient is currently on room air oxygen. She is taking Remdesivir and she is on day #4. She is also on a combination of Decadron 6 mg by mouth daily, Lovenox 40 mg for DVT prophylaxis and she is also multivitamins. Blood work essentially within normal limits. White cell count of 5 with a hemoglobin of 13.4, electrolytes are all within normal limits, normal renal function. No other significant events otherwise for now. Objective - Vital Signs Vital signs: Vital Signs Temp 97.8 F 03/30/21 07:10 Pulse 54 L 03/30/21 07:10 Resp 19 03/30/21 13:59 BP 164/76 03/30/21 07:10 Pulse Ox 95 03/30/21 07:10 Intake & Output 03/29/21 03/30/21 03/30/21 18:59 06:59 18:59 Intake Total 250 Balance 250 Intake: IV 250 Remdesivir 100 mg In 250 Sodium Chloride 0.9% 250 ml @ 250 mls/hr IVPB DAILY@1400 [facility] Rx#: [id number] Other: Voiding Method Toilet Toilet Toilet # Voids 1 2 - Exam Gen. appearance the patient is currently on 3 L about 2 by nasal cannula, breathing is nonlabored The patient appeared well nourished and normally developed. Vital signs as documented. Head exam is unremarkable. No scleral icterus or corneal arcus noted. Neck is without jugular venous distension, thyromegaly, or carotid bruits. Carotid upstrokes are brisk bilaterally. Lungs are revealed few crackles at lung bases bilaterally. Cardiac exam reveals the PMI to be normally sized and situated. Rhythm is regular. First and second heart sounds normal. No murmurs, rubs or gallops. Abdominal exam reveals normal bowel sounds, no masses, no organomegaly and no aortic enlargement. Extremities are nonedematous and both femoral and pedal pulses are normal. Examination of the skin revealed no evidence of significant rashes, suspicious appearing nevi or other concerning lesions. Neurologically, the patient is awake and alert and the patient does not have any focal neurological deficit. Cranial nerves are essentially intact. - Labs CBC & Chem 7: 03/30/21 06:32 03/30/21 06:32 Labs: Abnormal Lab Results - Last 24 Hours (Table) 03/30/21 Range/Units 06:32 Sodium 133 L (137-145) mmol/L Chloride 108 H (98-107) mmol/L Carbon Dioxide 20 L (22-30) mmol/L BUN 18 H (7-17) mg/dL Glucose 109 H (74-99) mg/dL Assessment and Plan Plan: 1 acute Covid associated pneumonia with secondary shortness of breath, cough and hypoxemia, clinically improved and the patient is currently on room air oxygen 2 acute hypoxemic respiratory failure and the patient is currently on today's of action by nasal cannula 3 mild elevation of inflammatory markers 4 hypertension 5 hyperlipidemia Plan maintaining room air oxygen and monitor the oxygenation saturation Completed a 4 day course of Remdesivir and continue the Decadron IV fluids to KVO inflammatory markers have improved and a d-dimer level is low We'll continue to follow discharge planning is in progress
[2021-03-30] MEDS: ATORVASTATIN 40 MG TAB PO SCH (20:58)
[2021-03-31] MEDS: dexAMETHasone 2 MG TAB PO SCH (07:20)
[2021-03-31] MEDS: ENOXAPARIN 40 MG/0.4 ML SYRINGE SQ SCH (07:20)
[2021-03-31] MEDS: ISOSORBIDE MONONITRATE ER 30 MG TAB.ER.24H PO SCH (07:20)
[2021-03-31] MEDS: cycloSPORINE 0.05% OPHTH 0.4 ML DROPERETTE BOTH EYES SCH (07:20)
[2021-03-31] MEDS: MULTIVITAMINS, THERA 1 EACH TAB PO SCH (07:20)
[2021-03-31] MEDS: CHOLECALCIFEROL 25 MCG (1000 IU) TABLET PO SCH (07:20)
[2021-03-31] MEDS: ASCORBIC ACID 500 MG TAB PO SCH (07:20)
[2021-03-31] MEDS: METOPROLOL TARTRATE 50 MG TAB PO SCH (07:20)
[2021-03-31] MEDS: ZINC SULFATE 220 MG CAP PO SCH (07:20)
[2021-03-31 08:17] VITALS: BP 167/74; PULSE 52; RESP 17; TEMP 98
[2021-03-31] MEDS: ALBUTEROL HFA INHALER INHALATION PRN ×2 (08:37→12:47)
--- NOTE | 2021-03-31 11:52 | P.DS ---
Providers Date of admission: 03/28/21 15:37 Expected date of discharge: 03/31/21 Attending physician: Addison Ramos MD Consults: 03/27/21 10:42 Consult Physician Routine Consulting Provider: Fabian Lewis Consult Reason/Comments: covid Do you want consulting provider notified?: Yes Primary care physician: Sarah Griggs MD Hospital Course: This is a 76-year-old female with past medical history noted below that presented to the emergency room with worsening shortness of breath. Patient was evaluated and admitted to the hospital for further management of her medical problems noted below. 1. Acute hypoxic respiratory failure secondary to COVID-19 in non-vaccinated patient: Chest x-ray unremarkable. D-dimer normal. Continue Decadron 6 mg daily. Vitamin C, vitamin D, and zinc supplements. Pulmonary consulted for further evaluation. Patient was started on Remdesivir and finish course during this admission. 2. Hypomagnesemia, replaced 3. Hyponatremia, we will continue gentle IV fluid hydration with normal saline 4. Essential hypertension, resume home medications Patient's overall condition improved significantly throughout her hospital stay. On the day of discharge, patient was on room air with no evidence of hypoxia. No significant shortness of breath. She will finish a total of 10 days course of Decadron 6 mg daily. She was follow-up with her PCP as directed. Physical exam: General: The patient is awake and alert, in no distress Eye: there is normal conjunctiva bilaterally. Neck: The neck is supple, there is no JVD. Cardiovascular: Normal S1-S2, no S3-S4, no murmurs. Respiratory: Lungs clear to auscultation bilaterally Gastrointestinal: Abdomen is soft, nontender Musculoskeletal: There is no pedal edema. Neurological:. Speech is normal. Skin: Skin is warm and dry Patient Condition at Discharge: Fair Plan - Discharge Summary New Discharge Prescriptions: New Ascorbic Acid [Vitamin C] 1,000 mg PO DAILY #30 tab Cholecalciferol [Vitamin D3 (25 Mcg = 1000 Iu)] 50 mcg PO DAILY #30 tablet Dexamethasone [Decadron] 6 mg PO DAILY #5 tablet Zinc Sulfate [Orazinc] 220 mg PO DAILY #30 cap Continue Metoprolol Tartrate [Lopressor] 100 mg PO BID amLODIPine [Norvasc] 5 mg PO DAILY cycloSPORINE [Restasis] 1 drop BOTH EYES BID Multivitamins, Thera [Multivitamin (formulary)] 1 tab PO DAILY Isosorbide Mononitrate ER [Imdur] 60 mg PO DAILY Albuterol Inhaler [Ventolin Hfa Inhaler] 2 puff INHALATION RT-QID PRN PRN Reason: Shortness Of Breath Atorvastatin [Lipitor] 40 mg PO HS Discontinued Isosorbide Mononitrate ER [Imdur] 30 mg PO DAILY Discharge Medication List Metoprolol Tartrate [Lopressor] 100 mg PO BID 01/07/14 [History] amLODIPine [Norvasc] 5 mg PO DAILY 12/01/15 [History] Albuterol Inhaler [Ventolin Hfa Inhaler] 2 puff INHALATION RT-QID PRN 03/27/21 [History] Atorvastatin [Lipitor] 40 mg PO HS 03/27/21 [History] Isosorbide Mononitrate ER [Imdur] 60 mg PO DAILY 03/27/21 [History] Multivitamins, Thera [Multivitamin (formulary)] 1 tab PO DAILY 03/27/21 [History] cycloSPORINE [Restasis] 1 drop BOTH EYES BID 03/27/21 [History] Ascorbic Acid [Vitamin C] 1,000 mg PO DAILY #30 tab 03/31/21 [Rx] Cholecalciferol [Vitamin D3 (25 Mcg = 1000 Iu)] 50 mcg PO DAILY #30 tablet 03/31/21 [Rx] Dexamethasone [Decadron] 6 mg PO DAILY #5 tablet 03/31/21 [Rx] Zinc Sulfate [Orazinc] 220 mg PO DAILY #30 cap 03/31/21 [Rx] Follow up Appointment(s)/Referral(s): Sarah Griggs MD [Primary Care Provider] - 1-2 days Discharge Disposition: HOME SELF-CARE
[2021-03-31] MEDS: REMDESIVIR 100 MG in SODIUM CHLORIDE 0.9% 250 ML IVPB SCH (13:15)
--- NOTE | 2021-03-31 14:24 | P.PN ---
Subjective Progress Note Date: 03/31/21 76-year-old female patient, presented with generalized weakness shortness of breath and cough. The patient was diagnosed having COVID 19 pneumonia. The patient was hypoxic at time of admission with a pulse ox of 87% on room air oxygen and currently she is on 3 L. She was in the emergency department today to receive multiple antibodies and the patient was found to be hypoxic and ultimately she was started on Decadron and she'll be admitted to the hospital. Her symptoms started approximately a week ago and it has been progressively getting worse. As mentioned earlier, this is on not vaccinated individual. The chest x-ray showing improvement in bilateral pulmonary infiltrates mainly in the lung bases worse on the left. The blood work is showing a CRP level of 2 LDH of 482, normal coagulation profile, normal CBC. Currently on 3 L with a pulse ox of 96%. Comorbid conditions include hypertension hyperlipidemia 03/28/2021, the patient is coughing and she also lost her sense of smell. She is tolerating her diet. Her cough is dry. There is no significant sputum production. She remains on 3 L of oxygen by nasal cannula. She remains on a combination of Decadron and she is also on her dyspnea per protocol. No altered mentation. No nausea or vomiting. No emesis. No diarrhea. She is still feeling weak and quite ill. Nevertheless, there is no worsening in her oxygenation. Pulse ox is 97% of the structures of oxygen by nasal cannula.The LDH level is lower. The level is is lower compared to yesterday. Pro- calcitonin level is 0.22. The patient remains on Decadron 6 mg by mouth daily. The patient is seen today 03/29/2021 in follow-up on the regular medical floor. She is currently sitting up in bed. Awake and alert in no acute distress. She still has a dry nonproductive cough. Maintaining good O2 saturation in the mid 90s on room air. She's been afebrile. Hemodynamically stable. No new labs today. This is day #3 of Remdesivir. She is continued on Decadron, Lovenox, vitamin supplements. this is a follow-up evaluations was done on 03/30/2021 on this patient was being seen in follow-up regarding her COVID 19 infection/pneumonia. The patient presented with mild hypoxemia and currently she is on room air oxygen. She is still feeling lethargic and weak. However, her overall rest or status is stable and the patient is improved and the patient is currently on room air oxygen. She is taking Remdesivir and she is on day #4. She is also on a combination of Decadron 6 mg by mouth daily, Lovenox 40 mg for DVT prophylaxis and she is also multivitamins. Blood work essentially within normal limits. White cell count of 5 with a hemoglobin of 13.4, electrolytes are all within normal limits, normal renal function. No other significant events otherwise for now. 03/31/2021, patient has no specific complaints and the patient remains on room air oxygen. She is on Decadron and she completed her 5 day course of Remdesivir. The plan is to discharge the patient home. No altered mentation. She has good exams capacity. No significant shortness of breath. No reported fever or chills. No other significant events overnight. Objective - Vital Signs Vital signs: Vital Signs Temp 98 F 03/31/21 07:10 Pulse 52 L 03/31/21 07:10 Resp 17 03/31/21 08:00 BP 167/74 03/31/21 07:10 Pulse Ox 94 L 03/31/21 07:10 Intake & Output 03/30/21 03/31/21 03/31/21 18:59 06:59 18:59 Intake Total 250 500 Balance 250 500 Intake: IV 250 Remdesivir 100 mg In 250 Sodium Chloride 0.9% 250 ml @ 250 mls/hr IVPB DAILY@1400 [facility] Rx#: [id number] Oral 500 Other: Voiding Method Toilet Toilet Toilet # Voids 2 - Exam Gen. appearance the patient is currently on 3 L about 2 by nasal cannula, breathing is nonlabored The patient appeared well nourished and normally developed. Vital signs as documented. Head exam is unremarkable. No scleral icterus or corneal arcus not ed. Neck is without jugular venous distension, thyromegaly, or carotid bruits. Carotid upstrokes are brisk bilaterally. Lungs are revealed few crackles at lung bases bilaterally. Cardiac exam reveals the PMI to be normally sized and situated. Rhythm is regular. First and second heart sounds normal. No murmurs, rubs or gallops. Abdominal exam reveals normal bowel sounds, no masses, no organomegaly and no aortic enlargement. Extremities are nonedematous and both femoral and pedal pulses are normal. Examination of the skin revealed no evidence of significant rashes, suspicious appearing nevi or other concerning lesions. Neurologically, the patient is awake and alert and the patient does not have any focal neurological deficit. Cranial nerves are essentially intact. - Labs CBC & Chem 7: 03/30/21 06:32 03/30/21 06:32 Assessment and Plan Plan: 1 acute Covid associated pneumonia with secondary shortness of breath, cough and hypoxemia, clinically improved and the patient is currently on room air oxygen 2 acute hypoxemic respiratory failure and the patient is currently on today's of action by nasal cannula 3 mild elevation of inflammatory markers 4 hypertension 5 hyperlipidemia Plan May discharge this patient home today as the patient is currently on room air oxygen and the patient's complete her course of Remdesivir. Complete a total of 10 day course of Decadron. Follow up on outpatient basis. We'll sign off the case.
== END 2021-03-31 14:49 | disposition home or self-care (01) | DRG 177 ==
LOC: EC 05:06 → 1SOBS 06:30 → 6NMEDSUR 16:15 → OBSVTOIN 03-28 15:37
PROVIDERS: ADMIT Internal Medicine; ATTEND Internal Medicine
PROC: XW033E5 Introduction of Remdesivir Anti-infective into Peripheral Vein, Percutaneous Approach, New Technology Group 5 (ICD-10-PCS; principal; 2021-03-28)
DX: U07.1 COVID-19 (principal); J96.01 Acute respiratory failure with hypoxia; J12.82 Pneumonia due to coronavirus disease 2019; E87.1 Hypo-osmolality and hyponatremia; E78.5 Hyperlipidemia, unspecified; E83.42 Hypomagnesemia; I10 Essential (primary) hypertension; Z79.899 Other long term (current) drug therapy; Z91.041 Radiographic dye allergy status; Z90.49 Acquired absence of other specified parts of digestive tract
CPT/HCPCS: 36415; 71045; 80048; 80053; 83605; 83615; 83735; 84145; 85025; 85379; 85610; 85730; 86140; 87635; 94640; 96361; 96374; 96375; 99285

== ENCOUNTER → 2024-09-12 | Outpatient (CLI) | payer MEDICARE ==
--- NOTE | 2024-09-12 21:42 | MR ---
EXAMINATION TYPE: MR lumbar spine wo con DATE OF EXAM: 09/12/2024 3:36 PM COMPARISON: None. CLINICAL INDICATION: Female, 79 years old with history of M51.36 OTHER INTVRT DISC DEGEN, LUM RGN WIT H DISCO, Low back pain, bilateral leg weakness for 4-5 months, falls. TECHNIQUE: Multiplanar, multisequence images of the lumbar spine were acquired without IV contrast. 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 A few scattered benign fatty matrix hemangioma is particularly within the L1, L2, and S1 vertebral dustin dies. Mild multilevel degenerative disc disease characterized by desiccated, variably narrowed, and bulging discs. Small posterior annular fissure noted at L4-L5. Some minimal associated Modic type I endplate change towards the left at L3-L4. Conus medullaris is normal. While bulging disks impress on the ventral thecal sac, largest right paracentral at L3-L4, there is n o significant spinal canal stenosis. Mild facet arthropathy mid to lower lumbar spine. On the left, changes result in mild neural foraminal narrowing at L3-L4 and L5-S1. On the right, changes resulting in mild neuroforaminal narrowing at L5-S1. Vertebral body heights are preserved and alignment is maintained No prevertebral or paravertebral soft tissue abnormality. IMPRESSION: 1. Mild multilevel degenerative disc disease with variably desiccated and bulging discs. Tiny posteri or annular fissure at L4-L5. Largest protrusion is left paracentral aspect at L3-L4. No significant s diaz canal stenosis. 2. Additional mild facet arthropathy mid to lower lumbar spine. There is resultant variable mild neur al foraminal narrowing as outlined above. [facility], , 09/12/2024 9:40 PM
== END | disposition home or self-care (01) ==
LOC: RADMRIMAIN 14:53
PROVIDERS: ATTEND Orthopaedic Surgery
DX: M51.360 Other intervertebral disc degeneration, lumbar region with discogenic back pain only (principal); M51.26 Other intervertebral disc displacement, lumbar region; M47.816 Spondylosis without myelopathy or radiculopathy, lumbar region; M48.061 Spinal stenosis, lumbar region without neurogenic claudication
CPT/HCPCS: 72148